=== PATIENT | female | born 1960 | race Caucasian/White ===

== ENCOUNTER → 2016-10-06 | Outpatient (CLI) | payer OTHER ==
[2016-10-06 18:52] LABS: BASOPHILS % (AUTO) 0.6 %; EOSINOPHILS # (AUTO) 0.1 10^3/uL (0.0-0.7); EOSINOPHILS % (AUTO) 1.1 %; HCT - HEMATOCRIT 40.9 % (37.0-47.0); HGB - HEMOGLOBIN 13.8 g/dL (12.0-16.0); LYMPHOCYTES # (AUTO) 2.1 10^3/uL (1.5-3.5); LYMPHOCYTES % (AUTO) 24.9 %; MEAN CORPUSCULAR HEMOGLOBIN 29.4 pg (27.0-31.0); MEAN CORPUSCULAR HGB CONC 33.7 g/dL (32.0-36.0); MEAN CORPUSCULAR VOLUME 87.4 fL (81.0-99.0); MEAN PLATELET VOLUME 7.8 fL (7.9-10.8); MONOCYTES # (AUTO) 0.5 10^3/uL (0.0-1.0); MONOCYTES % (AUTO) 6.1 %; NEUTROPHILS # (AUTO) 5.6 10^3/uL (1.5-6.6); NEUTROPHILS % (AUTO) 67.3 %; RED BLOOD COUNT 4.68 10^6/uL (4.20-5.40); RED CELL DISTRIBUTION WIDTH 12.8 % (12.0-15.0); UNCORRECTED WHITE BLOOD COUNT 8.4 x10^3/uL; WHITE BLOOD COUNT 8.4 x10^3/uL (4.8-10.8)
[2016-10-06 19:09] LABS: ALBUMIN/GLOBULIN RATIO 1.7 (1.0-2.2); BILIRUBIN,TOTAL 0.7 mg/dL (0.2-1.0); BUN - BLOOD UREA NITROGEN 17 mg/dL (6-20); CALCIUM 9.3 mg/dL (8.5-10.3); CARBON DIOXIDE - CO2 27 mmol/L (21-32); CHLORIDE 104 mmol/L (101-111); CHOL/HDL RATIO 4.4 (<4.4); CHOLESTEROL 253 mg/dL; CREATININE 0.5 mg/dL (0.4-1.0); GFR - MDRD 129 (>89); GLUCOSE 91 mg/dL (70-100); HDL CHOLESTEROL 57 mg/dL; LDL/HDL RATIO 2.7 (<4.4); POTASSIUM 3.9 mmol/L (3.5-5.0); SODIUM 136 mmol/L (135-145); TOTAL PROTEIN 7.3 g/dL (6.7-8.2); TRIGLYCERIDES 212 mg/dL; VLDL CHOLESTEROL 42 mg/dL
== END ==
LOC: LAB.N 07:49
PROVIDERS: ATTEND Nurse Practitioner Gerontology
DX: Z13.9 Encounter for screening, unspecified (principal)
CPT/HCPCS: 36415; 80053; 80061; 85025

== ENCOUNTER 2017-01-24 13:59 | Outpatient (CLI) | payer OTHER ==
--- NOTE | 2017-01-31 15:45 | Mammography Report ---
DIGITAL SCREENING MAMMOGRAM: 01/24/2017 CLINICAL INDICATION: A 56-year-old with family history of breast cancer, for screening. COMPARISON: Films from [place], [place] dated 08/27/2013, 05/26/2011, 01/10/2010. TECHNIQUE: Routine CC and MLO projections were obtained of the breasts. FINDINGS: The breasts again demonstrate heterogeneously dense fibroglandular parenchyma bilaterally. Punctate, typically benign calcifications are present. In the right lower outer central breast, ther e is a possible obscured nodule. Further evaluation with spot compression views and possible ultrasou nd is recommended. No mammographically suspicious findings are appreciated in the left breast. IMPRESSION: INCOMPLETE EXAMINATION. RECOMMENDATION: ADDITIONAL EVALUATION OF THE RIGHT BREAST ABOVE. BIRADS CATEGORY 0-INCOMPLETE. STANDARD QUALIFYING STATEMENTS 1. This examination was reviewed with the aid of Computer-Aided Detection (CAD). 2. A negative or benign imaging report should not delay biopsy if clinically suspicious findings are present. Consider surgical consultation if warranted. More than 5% of cancers are not identified by i maging. 3. Dense breasts may obscure an underlying neoplasm. JOB #: [id number] EXT JOB #:[id number]
== END 2017-01-24 14:00 | disposition home or self-care (01) ==
LOC: DI 13:59
PROVIDERS: ATTEND Nurse Practitioner Gerontology
DX: Z12.31 Encounter for screening mammogram for malignant neoplasm of breast (principal); R92.8 Other abnormal and inconclusive findings on diagnostic imaging of breast; Z80.3 Family history of malignant neoplasm of breast
CPT/HCPCS: 77067

== ENCOUNTER 2017-02-16 10:04 | Outpatient (CLI) | payer OTHER ==
--- NOTE | 2017-02-16 16:24 | Mammography Report ---
DIGITAL DIAGNOSTIC RIGHT MAMMOGRAM: 02/16/2017 CLINICAL INDICATION: Possible nodule right breast on screening. TECHNIQUE: Right true lateral and spot compression views. COMPARISON: 01/24/2017, 08/17/2013, 08/01/2012, 05/26/2011, 01/10/2010, 01/02/2008. FINDINGS: The right breast demonstrates heterogeneously dense fibroglandular parenchyma. The questio josé miguel obscured nodule does not persist on additional compression. A few punctate, typically benign calc ifications are present. IMPRESSION: BENIGN FINDINGS. RECOMMENDATION: ROUTINE ANNUAL SCREENING UNLESS OTHERWISE CLINICALLY INDICATED. BIRADS CATEGORY 2-BENIGN FINDINGS. STANDARD QUALIFYING STATEMENTS 1. This examination was reviewed with the aid of Computer-Aided Detection (CAD). 2. A negative or benign imaging report should not delay biopsy if clinically suspicious findings are present. Consider surgical consultation if warranted. More than 5% of cancers are not identified by i maging. 3. Dense breasts may obscure an underlying neoplasm. JOB #: [id number] EXT JOB #:[id number]
== END 2017-02-16 10:05 | disposition home or self-care (01) ==
LOC: DI 10:04
PROVIDERS: ATTEND Nurse Practitioner Gerontology
DX: R92.8 Other abnormal and inconclusive findings on diagnostic imaging of breast (principal)

== ENCOUNTER 2017-03-15 12:09 | Outpatient (CLI) | payer OTHER | END 2017-03-15 12:10 | disposition home or self-care (01) | LOC: LAB 12:09 | PROVIDERS: ATTEND Nurse Practitioner Gerontology | DX: E03.9 Hypothyroidism, unspecified (principal) | CPT/HCPCS: 36415; 84443 ==

== ENCOUNTER 2017-05-14 08:00 | Outpatient (CLI) | payer OTHER ==
[2017-05-14 19:44] LABS: THYROID STIMULATING HORMONE 0.64 uIU/mL (0.34-5.60)
== END 2017-05-14 23:59 | disposition home or self-care (01) ==
LOC: LAB.N 08:00
PROVIDERS: ATTEND Naturopath
DX: R68.82 Decreased libido (principal); Z79.890 Hormone replacement therapy
CPT/HCPCS: 36415; 81599; 82671; 84402; 84403; 84439; 84443; 84481

== ENCOUNTER 2018-04-11 16:10 | Outpatient (CLI) | payer BC ==
--- NOTE | 2018-04-15 09:13 | Mammography Report ---
Reason: SCREENING MAMMO Procedure Date: 04/11/2018 Accession Number: [id number] / [id number] Procedure: TOMASA - Screening Mammo w/Benji CPT Code: FULL RESULT: EXAM: Screening Mammo w/Ebnji DATE: 04/11/2018 4:30 PM CLINICAL HISTORY: Screening encounter. Family history of breast cancer in the mother at age 65 a paternal uncle at the age of 68 and a maternal cousin at the age of 54. TECHNIQUE: Bilateral CC and MLO views were obtained. COMPARISON: 02/16/2017 through 01/10/2010. FINDINGS: The breasts demonstrate scattered fibroglandular densities bilaterally. There are coarse typically benign calcifications. No suspicious masses, clustered microcalcifications, or regions of architectural distortion are identified. IMPRESSION: Benign findings RECOMMENDATION: Routine annual screening unless otherwise clinically indicated. BIRADS CATEGORY 2: Benign findings STANDARD QUALIFYING STATEMENTS: 1. This examination was not reviewed with the aid of Computer-Aided Detection (CAD). 2. A negative or benign imaging report should not preclude biopsy if clinically suspicious findings are present. 3. Dense breasts may obscure an underlying neoplasm. 4. This examination was reviewed with the aid of 3D breast imaging (tomosynthesis).
== END 2018-04-11 16:11 | disposition home or self-care (01) ==
LOC: DI 16:10
DX: Z12.31 Encounter for screening mammogram for malignant neoplasm of breast (principal); Z80.3 Family history of malignant neoplasm of breast
CPT/HCPCS: 77063; 77067

== ENCOUNTER 2018-08-09 08:05 | Outpatient (CLI) | payer BC ==
[2018-08-09 09:00] LABS: ALBUMIN 4.2 g/dL (3.2-5.5); ALBUMIN/GLOBULIN RATIO 1.4 (1.0-2.2); ALKALINE PHOSPHATASE 35 IU/L (42-121); ALT ALANINE AMINOTRANSFERASE 21 IU/L (10-60); AST ASPARTATE AMINOTRANSFERASE 23 IU/L (10-42); BILIRUBIN,TOTAL 0.8 mg/dL (0.2-1.0); BUN - BLOOD UREA NITROGEN 12 mg/dL (6-20); CALCIUM 8.8 mg/dL (8.5-10.3); CARBON DIOXIDE - CO2 24 mmol/L (21-32); CHLORIDE 104 mmol/L (101-111); CHOL/HDL RATIO 4.5 (<4.4); CHOLESTEROL 265 mg/dL; CREATININE 0.6 mg/dL (0.4-1.0); GFR - MDRD 104 (>89); GLUCOSE 117 mg/dL (70-100); HDL CHOLESTEROL 59 mg/dL; LDL CHOLESTEROL,CALCULATED 181 mg/dL; LDL/HDL RATIO 3.1 (<4.4); SODIUM 137 mmol/L (135-145); TOTAL PROTEIN 7.3 g/dL (6.7-8.2); VLDL CHOLESTEROL 25 mg/dL
[2018-08-09 09:24] LABS: CRP - C-REACTIVE PROTEIN < 1.0 mg/dL (0-1.0)
[2018-08-13 18:16] LABS: FREE TESTOSTERONE 16.1 pg/mL (0.1-6.4)
== END 2018-08-09 08:06 | disposition home or self-care (01) ==
LOC: LAB 08:05
DX: M19.90 Unspecified osteoarthritis, unspecified site (principal)
CPT/HCPCS: 36415; 80053; 80061; 82670; 83721; 84270; 84402; 84403; 84443; 86140

== ENCOUNTER 2019-06-10 16:12 | Outpatient (CLI) | payer BC ==
--- NOTE | 2019-06-11 10:02 | Mammography Report ---
Reason: ROUTINE MAMMO Procedure Date: 06/10/2019 Accession Number: [id number] / [id number] Procedure: TOMASA - Screening Mammo w/Benji CPT Code: Final Report FULL RESULT: EXAM: Screening Mammo w/Benji DATE: 06/10/2019 4:33 PM CLINICAL HISTORY: Routine screening. Mother and paternal uncle with breast cancer. TECHNIQUE: (B) - Bilateral CC and MLO views were obtained. COMPARISON: 04/11/2018, 02/16/2017, 01/24/2017, 09/01/2014, 08/27/2013, 08/01/2012 and 05/26/2011 PARENCHYMAL PATTERN: (D) - The breasts demonstrate heterogeneously dense fibroglandular parenchyma bilaterally. FINDINGS: No significant interval change. There are no suspicious masses, calcifications, or areas of distortion. IMPRESSION: Negative examination. BI-RADS category 1. RECOMMENDATION: (ANNUAL) - Recommend routine annual screening mammography. BI-RADS CATEGORY: (1) - Negative. STANDARD QUALIFYING STATEMENTS: 1. This examination was not reviewed with the aid of Computer-Aided Detection (CAD). 2. A negative or benign imaging report should not preclude biopsy if clinically suspicious findings are present. 3. Dense breasts may obscure an underlying neoplasm. 4. This examination was reviewed with the aid of 3D breast imaging (tomosynthesis).
== END 2019-06-10 16:13 | disposition home or self-care (01) ==
LOC: DI 16:12
DX: Z12.31 Encounter for screening mammogram for malignant neoplasm of breast (principal)
CPT/HCPCS: 77063; 77067

== ENCOUNTER 2020-05-26 12:50 | Outpatient (CLI) | payer BC ==
--- NOTE | 2020-05-27 13:26 | Mammography Report ---
BILATERAL DIGITAL SCREENING MAMMOGRAM 3D/2D: 05/26/2020 CLINICAL: Family history of breast cancer. Routine screening. Comparison is made to exams dated: 06/10/2019 mammogram, 04/11/2018 mammogram, 02/16/2017 mammogram, mammogram - [facility], and 09/01/2014 mammogram - [facility]. The tissue of both breasts is heterogeneously dense. This may lower the sensitivity of mammography. No significant masses, calcifications, or other findings are seen in either breast. There has been no significant interval change. IMPRESSION: NEGATIVE There is no mammographic evidence of malignancy. A 1 year screening mammogram is recommended. This exam was interpreted at Station ID: [id number]. NOTE: For mammograms, a report in lay terms will be sent to the patient. Approximately 15% of breast malignancies will not be visualized mammographically. In the management of a palpable breast mass, a negative mammogram must not discourage biopsy of a clinically suspicious lesion. Electronically Signed By: Jayme Mkie M.D. ddp/penrad:05/26/2020 13:49:20 ACR BI-RADS Category 1: Negative 3341F PARENCHYMAL PATTERN: (D) - The breast(s) demonstrate(s) heterogeneously dense fibroglandular raegan kim. BI-RADS CATEGORY: (1) - 1 RECOMMENDATION: (ANNUAL) - Recommend routine annual screening mammography. [id number] 1 year screening LATERALITY: (B)
== END 2020-05-26 12:51 | disposition home or self-care (01) ==
LOC: DI.N 12:50
DX: Z12.31 Encounter for screening mammogram for malignant neoplasm of breast (principal); Z80.3 Family history of malignant neoplasm of breast

== ENCOUNTER 2021-07-28 13:56 | Outpatient (CLI) | payer BC ==
--- NOTE | 2021-07-29 09:48 | Mammography Report ---
BILATERAL DIGITAL SCREENING MAMMOGRAM 3D/2D: 07/28/2021 CLINICAL: Family history of breast cancer. Routine screening. Comparison is made to exams dated: 05/26/2020 mammogram, 06/10/2019 mammogram, 04/11/2018 mammogram, mammogram, 01/24/2017 mammogram - [facility], and 09/01/2014 mammogram - [facility]. The tissue of both breasts is heterogeneously dense. This may lower the sensit ivity of mammography. There are benign calcifications in the right breast. No significant masses, calcifications, or other findings are seen in either breast. There has been no significant interval change. IMPRESSION: BENIGN There is no mammographic evidence of malignancy. A 1 year screening mammogram is recommended. This exam was interpreted at Station ID: [id number]. NOTE: For mammograms, a report in lay terms will be sent to the patient. Approximately 15% of breast malignancies will not be visualized mammographically. In the management of a palpable breast mass, a negative mammogram must not discourage biopsy of a clinically suspicious lesion. Electronically Signed By: Ar Evangelista acr/penrad:07/28/2021 17:24:23 ACR BI-RADS Category 2: Benign Finding(s) 3342F PARENCHYMAL PATTERN: (D) - The breast(s) demonstrate(s) heterogeneously dense fibroglandular parenchy ma. BI-RADS CATEGORY: (2) - 2 RECOMMENDATION: (ANNUAL) - Recommend routine annual screening mammography. [id number] 1 year screening LATERALITY: (B)
== END 2021-07-28 13:57 | disposition home or self-care (01) ==
LOC: DI.N 13:56
DX: Z12.31 Encounter for screening mammogram for malignant neoplasm of breast (principal); Z80.3 Family history of malignant neoplasm of breast

== ENCOUNTER 2022-07-17 13:12 | Outpatient (CLI) | payer BC ==
--- NOTE | 2022-07-18 10:23 | Mammography Report ---
BILATERAL DIGITAL SCREENING MAMMOGRAM 3D/2D: 07/17/2022 CLINICAL: Routine screening. Comparison is made to exams dated: 07/28/2021 mammogram, 05/26/2020 mammogram, 06/10/2019 mammogram, mammogram, 01/24/2017 mammogram - [facility], and 09/01/2014 mammogram - [facility]. Both breasts are heterogeneously dense, which may obscure small masses (category c / 51-75% glandular tissue). There is a possible asymmetry in the right breast middle depth superior region seen on the mediolater al oblique view only. This is more prominent. No other significant masses, calcifications, or other findings are seen in either breast. IMPRESSION: INCOMPLETE: NEEDS ADDITIONAL IMAGING EVALUATION The possible asymmetry in the right breast is indeterminate. Additional views with possible ultrasound are recommended. Based on the Tyrer Cuzick model (a risk assessment model) the patients lifetime risk is 19.3% and he r 10 year risk is 7.7%. According to the ACR, ACS, and NCCN guidelines, an annual breast MRI exam maryuri ng with mammogram is recommended if the patients lifetime risk is 20% or greater. This exam was interpreted at Station ID: [id number]. NOTE: For mammograms, a report in lay terms will be sent to the patient. Approximately 15% of breast malignancies will not be visualized mammographically. In the management of a palpable breast mass, a negative mammogram must not discourage biopsy of a clinically suspicious lesion. Electronically Signed By: Fer Garcia M.D. slc/:07/17/2022 14:50:44 ACR BI-RADS Category 0: Incomplete 3340F PARENCHYMAL PATTERN: (D) - The breast(s) demonstrate(s) heterogeneously dense fibroglandular parenchy ma. BI-RADS CATEGORY: (0) - 0 Mammo and [place] [id number] Immediate follow-up LATERALITY: (B)
== END 2022-07-17 13:13 | disposition home or self-care (01) ==
LOC: DI 13:12
DX: Z12.31 Encounter for screening mammogram for malignant neoplasm of breast (principal); R92.8 Other abnormal and inconclusive findings on diagnostic imaging of breast

== ENCOUNTER 2022-08-18 10:51 | Outpatient (CLI) | payer BC ==
--- NOTE | 2022-08-21 11:47 | Mammography Report ---
UNILATERAL RIGHT DIGITAL DIAGNOSTIC MAMMOGRAM 3D/2D: 08/18/2022 CLINICAL: Patient returns today to evaluate an asymmetry in the right breast. Comparison is made to exams dated: 07/17/2022 mammogram, 07/28/2021 mammogram, 05/26/2020 mammogram, 05/18 mammogram, 04/11/2018 mammogram, and 02/16/2017 mammogram - [facility]. The right breast is heterogeneously dense, which may obscure small masses (category c / 51-75% glandu lar tissue). There is a possible asymmetry in the right breast middle depth superior region seen on the mediolater al oblique view only. This is not seen in additional views. No other significant masses or calcifications are seen in the breast. IMPRESSION: INCOMPLETE: NEEDS ADDITIONAL IMAGING EVALUATION The possible asymmetry in the right breast is indeterminate. A targeted ultrasound is recommended and will immediately follow. Based on the Tyrer Cuzick model (a risk assessment model) the patients lifetime risk is 19.3% and he r 10 year risk is 7.7%. According to the ACR, ACS, and NCCN guidelines, an annual breast MRI exam maryuri ng with mammogram is recommended if the patients lifetime risk is 20% or greater. This exam was interpreted at Station ID: [id number]. NOTE: For mammograms, a report in lay terms will be sent to the patient. Approximately 15% of breast malignancies will not be visualized mammographically. In the management of a palpable breast mass, a negative mammogram must not discourage biopsy of a clinically suspicious lesion. Electronically Signed By: Fer Garcia M.D. slc/:08/18/2022 11:47:34 ACR BI-RADS Category 0: Incomplete 3340F PARENCHYMAL PATTERN: (D) - The breast(s) demonstrate(s) heterogeneously dense fibroglandular raegan kim. BI-RADS CATEGORY: (0) - 0 Ultrasound [id number] Immediate follow-up LATERALITY: (B)
--- NOTE | 2022-08-21 11:47 | Ultrasound Report ---
LIMITED ULTRASOUND OF RIGHT BREAST: 08/18/2022 CLINICAL: Patient returns today to evaluate a focal asymmetry in the right breast. Comparison is made to exams dated: 08/18/2022 mammogram, 07/17/2022 mammogram, 07/28/2021 mammogram, 05/26 mammogram, 06/10/2019 mammogram, and 04/11/2018 mammogram - [facility]. Color flow and real-time ultrasound of the right breast 12-3 o'clock region were performed. Ayala sca le images of the real-time examination were reviewed. There is a benign 0.5 cm oval simple cyst in the right breast at 12 o'clock middle depth 2 cm from th e nipple. This oval simple cyst is anechoic. Color flow imaging demonstrates that there is no vascu larity present. No solid mass in the region of possible asymmetry. IMPRESSION: BENIGN There is no sonographic evidence of malignancy. The 0.5 cm oval simple cyst in the right breast is benign. A 1 year screening mammogram is recommended. Exam findings were conveyed to the patient. This exam was interpreted at Station ID: [id number]. Electronically Signed By: Fer Garcia M.D. slc/:08/18/2022 11:54:28 Ultrasound BI-RADS: 2 Benign BI-RADS CATEGORY: (2) - 2 Mammogram [id number] 1 year screening LATERALITY: (B)
== END 2022-08-18 10:52 | disposition home or self-care (01) ==
LOC: DI 10:51
PROVIDERS: ATTEND Naturopath
DX: N60.01 Solitary cyst of right breast (principal)

== ENCOUNTER 2023-07-18 14:18 | Outpatient (CLI) | payer BC ==
--- NOTE | 2023-07-19 10:58 | Mammography Report ---
BILATERAL DIGITAL SCREENING MAMMOGRAM 3D/2D: 07/18/2023 CLINICAL: Routine screening. Comparison is made to exams dated: 07/17/2022 mammogram, 08/18/2022 mammogram, 07/28/2021 mammogram, 05/26 mammogram, 06/10/2019 mammogram, and 04/11/2018 mammogram - [facility]. Both breasts are heterogeneously dense, which may obscure small masses (category c / 51-75% glandular tissue). No significant masses, calcifications, or other findings are seen in either breast. There has been no significant interval change. IMPRESSION: NEGATIVE There is no mammographic evidence of malignancy. A 1 year screening mammogram is recommended. Based on the Tyrer Cuzick model (a risk assessment model) the patient's lifetime risk is 19.0% and he r 10 year risk is 7.9%. According to the ACR, ACS, and NCCN guidelines, an annual breast MRI exam maryuri ng with mammogram is recommended if the patient's lifetime risk is 20% or greater. This exam was interpreted at Station ID: [id number]. NOTE: For mammograms, a report in lay terms will be sent to the patient. Approximately 15% of breast malignancies will not be visualized mammographically. In the management of a palpable breast mass, a negative mammogram must not discourage biopsy of a clinically suspicious lesion. Electronically Signed By: Guerline lind/giovanny:07/18/2023 16:30:16 letter sent: No_Letter ACR BI-RADS Category 1: Negative 3341F PARENCHYMAL PATTERN: (D) - The breast(s) demonstrate(s) heterogeneously dense fibroglandular parcamilay julio. BI-RADS CATEGORY: (1) - 1 RECOMMENDATION: (ANNUAL) - Recommend routine annual screening mammography. [id number] 1 year screening LATERALITY: (B)
== END 2023-07-18 14:19 | disposition home or self-care (01) ==
LOC: DI 14:18
DX: Z12.31 Encounter for screening mammogram for malignant neoplasm of breast (principal); R92.333 Mammographic heterogeneous density, bilateral breasts